=== PATIENT | female | born 1985 | race Hispanic/Latino ===

== ENCOUNTER 2017-08-07 08:00 | Inpatient (IN) | payer BC, OTHER ==
[~2017-08-07] VITALS: Ht 162.6 cm; Wt 98.4 kg
[2017-08-07 09:35] LABS: HEMATOCRIT 31.2 % (36-48); MEAN CORPUSCULAR HEMOGLOBIN 26.5 pg (27.0-33.0); MEAN CORPUSCULAR HGB CONC 33.2 g/dL (32.0-36.0); MEAN CORPUSCULAR VOLUME 79.9 fL (79-99); NUCLEATED RED BLOOD CELLS 0.1 % (0.0-0.19); PLATELET COUNT (AUTO) 295 K/uL (130-400); RED BLOOD CELL COUNT(AUTO) 3.91 MIL/uL (4.00-5.50); RED CELL DISTRIBUTION WIDTH 20.3 % (11.0-15.5); WHITE BLOOD COUNT (AUTO) 7.7 K/uL (4.8-10.8)
[2017-08-08 07:28] LABS: HEPATITIS Bs ANTIGEN SCREEN P Negative (Negative)
[2017-08-08] MEDS ORDERED: CEFAZOLIN SODIUM 1 GM VIAL IVP PRN (07:45)
[2017-08-08] MEDS ORDERED: CALDOLOR 800MG+NS 250ML 250 ML IV PRN (07:45)
[2017-08-08] MEDS ORDERED: LACTATED RINGERS 1000ML 1,000 ML IV SCH (07:45)
[2017-08-08] MEDS ORDERED: CEFAZOLIN SODIUM 1 GM VIAL ONE (07:51)
[2017-08-08] MEDS ORDERED: CALDOLOR 800MG+NS 250ML 250 ML IV ONE (07:51)
[2017-08-08] MEDS ORDERED: PHENYLEPHRINE HCL 10 MG/ML 1ML VIAL IV ONE (08:03)
[2017-08-08] MEDS ORDERED: CEFAZOLIN SODIUM 1 GM VIAL IVP ONE (08:11)
[2017-08-08] MEDS ORDERED: OXYTOCIN-LR 20 UNITS/1000 ML 1,000 ML IV PRN (09:14)
[2017-08-08] MEDS ORDERED: PROMETHAZINE HCL 25 MG/ML 1ML AMPULE IM PRN ×2 (09:15→10:30)
[2017-08-08] MEDS ORDERED: ACETAMINOPHEN-CODEINE 300/30MG TAB PO PRN (09:15)
[2017-08-08] MEDS ORDERED: LANOLIN 30GM OINTMENT TP PRN (09:15)
[2017-08-08] MEDS ORDERED: MEPERIDINE-PF 75 MG/ML SYG IM PRN (09:15)
[2017-08-08] MEDS ORDERED: BISACODYL 10 MG SUPP.RECT RC PRN (09:15)
[2017-08-08] MEDS ORDERED: SODIUM CHLORIDE 0.9% 10 ML VIAL IVP PRN (09:15)
[2017-08-08] MEDS ORDERED: DEXTROSE 5 %-0.45 % NACL 1,000 ML IV PRN (09:15)
[2017-08-08] MEDS ORDERED: DIPHENHYDRAMINE HCL 25 MG CAPSULE PO PRN (09:15)
[2017-08-08] MEDS ORDERED: ACETAMINOPHEN EXTRA STRENGTH 500 MG TABLET PO PRN (09:15)
[2017-08-08] MEDS ORDERED: HYDROCODONE/ACETAMINOPHEN 5/325 MG TAB PO PRN ×3 (09:15→10:30)
[2017-08-08] MEDS: MEASLES/MUMPS/RUBELLA VACCINE, LIVE 0.5 ML/VIAL SQ SCH (09:15)
[2017-08-08] MEDS ORDERED: MEPERIDINE-PF 25 MG/ML SYG ONE (09:22)
[2017-08-08] MEDS ORDERED: EPHEDRINE SULFATE 50 MG/ML AMPULE IVP PRN (10:30)
[2017-08-08] MEDS ORDERED: MORPHINE SULFATE 2 MG/ML 1ML SYG IVP PRN (10:30)
[2017-08-08] MEDS ORDERED: ONDANSETRON HCL 4 MG/2 ML VIAL IVP PRN ×2 (10:30)
[2017-08-08] MEDS ORDERED: ONDANSETRON HCL 4 MG/2 ML 8 MG in SODIUM CHLORIDE 0.9% 50 ML IVP NR (10:30)
[2017-08-08] MEDS ORDERED: METOCLOPRAMIDE 10 MG/2 ML VIAL IVP PRN (10:30)
[2017-08-08] MEDS ORDERED: DiphenhydrAMINE HCL 50 MG/ML VIAL IVP PRN (10:30)
[2017-08-08] MEDS ORDERED: NALOXONE HCL 0.4 MG/1 ML ML IVP PRN ×2 (10:30)
[2017-08-08] MEDS: HYDROCODONE/ACETAMINOPHEN 5/325 MG TAB PO PRN ×2 (11:02→23:49)
[2017-08-08 11:12] VITALS: BP 137/90
[2017-08-08] MEDS ORDERED: OXYTOCIN 10 USP UNITS/ML ONE (12:53)
[2017-08-08] MEDS ORDERED: FLU VACC QS2017-18 36MOS UP/PF 60 MCG/0.5 ML ML IM ONE (14:45)
[2017-08-08] MEDS: DIPH,PERTUSS(ACELL),TET VAC/PF 0.5 ML VIAL IM SCH (15:09)
[2017-08-08 15:43] VITALS: BP 118/75
[2017-08-08] MEDS: IBUPROFEN 800 MG TAB PO SCH ×2 (17:15→20:12)
[2017-08-08] MEDS: CALDOLOR 800MG+NS 250ML 250 ML IV SCH (17:27)
[2017-08-08] MEDS ORDERED: GLYB2.5 PO (17:40)
[2017-08-08] MEDS ORDERED: METF10004 PO (17:40)
[2017-08-08 19:29] VITALS: BP 106/67
[2017-08-08] MEDS: SIMETHICONE 80 MG TAB.CHEW PO PRN (21:04)
[2017-08-08] MEDS: DOCUSATE SODIUM 100 MG CAP PO SCH (21:04)
[2017-08-08] MEDS: GLYBURIDE 2.5 MG TAB PO SCH (21:04)
[2017-08-08] MEDS: METFORMIN HCL 500 MG TABLET PO SCH (21:04)
[2017-08-08 23:32] VITALS: BP 112/66
[2017-08-08] MEDS: LACTATED RINGERS 1000ML 1,000 ML IV SCH (23:49)
[2017-08-09] MEDS: CALDOLOR 800MG+NS 250ML 250 ML IV SCH (00:47)
[2017-08-09 03:15] VITALS: BP 100/56
[2017-08-09] MEDS: LACTATED RINGERS 1000ML 1,000 ML IV SCH ×2 (04:30→12:30)
[2017-08-09] MEDS: DIPH,PERTUSS(ACELL),TET VAC/PF 0.5 ML VIAL IM SCH (05:18)
[2017-08-09] MEDS: MEASLES/MUMPS/RUBELLA VACCINE, LIVE 0.5 ML/VIAL SQ SCH (05:19)
[2017-08-09 06:42] LABS: HEMATOCRIT 27.8 % (36-48); MEAN CORPUSCULAR HEMOGLOBIN 26.2 pg (27.0-33.0); MEAN CORPUSCULAR HGB CONC 32.3 g/dL (32.0-36.0); MEAN CORPUSCULAR VOLUME 81.1 fL (79-99); PLATELET COUNT (AUTO) 291 K/uL (130-400); RED BLOOD CELL COUNT(AUTO) 3.42 MIL/uL (4.00-5.50); RED CELL DISTRIBUTION WIDTH 21.6 % (11.0-15.5)
[2017-08-09 07:43] VITALS: BP 118/78
[2017-08-09] MEDS: IBUPROFEN 800 MG TAB PO SCH ×2 (08:17→16:03)
[2017-08-09] MEDS: SIMETHICONE 80 MG TAB.CHEW PO PRN ×4 (08:17→21:13)
[2017-08-09] MEDS: DOCUSATE SODIUM 100 MG CAP PO SCH ×2 (08:17→21:13)
[2017-08-09] MEDS: LIDOCAINE 5% TOPICAL PATCH TP SCH (08:18)
[2017-08-09] MEDS: GLYBURIDE 2.5 MG TAB PO SCH ×2 (08:18→21:14)
[2017-08-09] MEDS: METFORMIN HCL 500 MG TABLET PO SCH ×2 (08:18→21:13)
[2017-08-09 11:43] VITALS: BP 125/86
[2017-08-09] MEDS: HYDROCODONE/ACETAMINOPHEN 5/325 MG TAB PO PRN (13:44)
[2017-08-09 15:56] VITALS: BP 130/84
[2017-08-09 18:50] VITALS: BP 121/76
[2017-08-09 23:23] VITALS: BP 128/74
[2017-08-10] MEDS: IBUPROFEN 800 MG TAB PO SCH ×2 (01:21→08:50)
[2017-08-10 03:28] VITALS: BP 118/76
[2017-08-10 07:50] VITALS: BP 113/74
[2017-08-10] MEDS: GLYBURIDE 2.5 MG TAB PO SCH (08:48)
[2017-08-10] MEDS: DOCUSATE SODIUM 100 MG CAP PO SCH (08:48)
[2017-08-10] MEDS: METFORMIN HCL 500 MG TABLET PO SCH (08:48)
[2017-08-10] MEDS: SIMETHICONE 80 MG TAB.CHEW PO PRN (08:48)
[2017-08-10] MEDS: LIDOCAINE 5% TOPICAL PATCH TP SCH (08:49)
[2017-08-10] MEDS ORDERED: DOCU-116 PO (10:23)
[2017-08-10] MEDS ORDERED: MO8B PO (10:24)
[2017-08-10] MEDS ORDERED: ACET1TAB12 PO (10:25)
[2017-08-10 11:24] VITALS: BP 114/77
== END 2017-08-10 11:30 | disposition home or self-care (01) | DRG 765 ==
LOC: EDSTATUS 08:00 → LDH 08-08 05:31 → WSH 08-08 11:05
PROVIDERS: ADMIT Obstetrics & Gynecology; ATTEND Obstetrics & Gynecology
PROC: 0UB70ZZ Excision of Bilateral Fallopian Tubes, Open Approach (ICD-10-PCS; 2017-08-08)
PROC: 3E0234Z Introduction of Serum, Toxoid and Vaccine into Muscle, Percutaneous Approach (ICD-10-PCS; 2017-08-08)
PROC: 3E0234Z Introduction of Serum, Toxoid and Vaccine into Muscle, Percutaneous Approach (ICD-10-PCS; 2017-08-08)
PROC: 3E0134Z Introduction of Serum, Toxoid and Vaccine into Subcutaneous Tissue, Percutaneous Approach (ICD-10-PCS; 2017-08-08)
PROC: 10D00Z1 Extraction of Products of Conception, Low, Open Approach (ICD-10-PCS; principal; 2017-08-08 08:00)
DX: O34.211 Maternal care for low transverse scar from previous cesarean delivery (principal); O24.32 Unspecified pre-existing diabetes mellitus in childbirth; E66.9 Obesity, unspecified; O99.214 Obesity complicating childbirth; O69.81X0 Labor and delivery complicated by cord around neck, without compression, not applicable or unspecified; Z37.0 Single live birth; Z3A.38 38 weeks gestation of pregnancy; Z79.84 Long term (current) use of oral hypoglycemic drugs; Z23 Encounter for immunization; Z30.2 Encounter for sterilization
CPT/HCPCS: 36415; 59510; 82948; 85027; 86592; 86850; 86900; 86901; 87340; 88302; 90707; 90715; A4344; A4606; J0690; J1741; J2175; J2370; J2550; J2590; J7120; Q2038